=== PATIENT | female | born 1975 ===

== ENCOUNTER 2019-06-22 08:19 | Day surgery (SDC) | payer BC, SELFPAY ==
[2019-06-21 13:02] VITALS: BMI 32.5
--- NOTE | 2019-06-22 08:42 | PM.HPUD ---
H&P update H&P Update: DATE OF SURGERY/PROCEDURE: 06/22/19 DATE H&P PERFORMED: 06/22/19 PLANNED PROCEDURE: Operation Date: 06/22/19 10:05 Proposed Procedures p Laparoscopic Cholecystectomy poss open(Not Applicable) - Lawrence Foote MD Full H&P Perinent History: Family History: Family History (Updated 06/21/19 @ 09:13 by Monica Garcia RN) Other Diabetes Heart disease Hypertension
[2019-06-22] MEDS: sodium chloride 0.9% 1,000 ML 30 ML IV (09:11)
--- NOTE | 2019-06-22 09:24 | P.PN_ITS ---
Pre-Anesthetic Assessment Pre-Anesthetic Assessment: Height/Weight: Height 1.57 m Weight 80.739 kg Proposed Procedure: Operation Date: 06/22/19 10:05 Proposed Procedures p Laparoscopic Cholecystectomy poss open(Not Applicable) - Lawrence Foote MD Last intake: Intake Last Liquid Date 06/21/19 Last Liquid Time 20:00 Last Solid Date 06/21/19 Last Solid Time 18:00 Exam: Pre-Anes Outpt Exam: alert, oriented x 3, clear to auscultation bilaterally and regular rate & rhythm Airway: Submandibular: WNL Cervical ROM: WNL MP: 2 Dentition: Full History/ROS: No significant history except as noted and No significant c omplaints Pulmonary: Pulmonary: None reported CV/HEM: CV/HEM: Anemia and HTN : : None reported Hepatic: Hepatic: None reported GI: GI: None reported Metabolic: Metabolic: None reported Musc/skel: Musc/skel: None reported Neuropsych: Neuropsych: None reported Anesthetic Plan: ASA status: II Anesthesia: General Risk of > 500 ml blood loss (7ml/kg in children): No Meds/Allergies Current Medications: Current Medications Generic Name Dose Route Start Last Admin Trade Name Freq PRN Reason Stop Dose Admin Sodium Chloride 1,000 mls @ 30 ml s/hr 06/22/19 06:15 06/22/19 09:11 Sodium Chloride 0.9% IV 06/23/19 06:14 30 mls/hr .Q24H MICHAEL Administration PFSH Anesthesia PFSH: Family History (Updated 06/21/19 @ 09:13 by Monica Garcia RN) Other Diabetes Heart disease Hypertension Data Anesthesia Cardiac Studies: No Data to Display
[2019-06-22 10:21] LABS: Alanine Aminotransferase 15 U/L (0-33); Albumin Level 4.7 g/dL (3.5-5.2); Alkaline Phosphatase 61 IU/L (35-105); Aspartate Amino Transferase 14 U/L (0-32); Globulin 2.6 g/dL (1.3-4.6); Total Bilirubin 0.6 mg/dL (0.15-1.2); Total Protein 7.3 g/dL (6.6-8.7)
--- NOTE | 2019-06-22 10:30 | P.OP_ITS ---
Operative Report Post-Operative Note: Date of procedure: 06/22/19 Preop Diagnosis: Symptomatic cholelithiasis. Post-op diagnosis: same Procedure Done: Laparoscopic cholecystectomy. Specimens removed/disposition: Gallbladder. Surgeon: Lawrence Foote Anesthesia: general Estimated blood loss (mL): 10 Complications: None. Condition: stable Disposition: PACU Operative Report: Procedure: The patient was brought to the Operating Room and was placed in a supine position on the Operating Room table. General endotr acheal anesthesia was induced. The abdomen was prepped and draped in a sterile fashion. A small vertical incision was carried out in the inferior aspect of the umbilicus. Blunt dissection was carried out down to the fascia, which was grasped with a Jennifer clamp. A stay suture of 0 Vicryl was placed on either side of the midline and the midline fascia was incised. The underlying peritoneum was opened bluntly and the Nilsa port was placed directly into the peritoneal cavity and was held in place with the inflatable balloon. The peritoneal cavity was insufflated with carbon dioxide. The laparoscope was used to inspect the abdominal cavity. No gross abnormalities were initially noted. A 5 millimeter port was placed in the epigastrium under direct vision. Two 5-millimeter ports were placed on the right side of the abdomen under direct vision. The gallbladder was grasped and was elevated. The patient was found to have adhesions all the way along the fundus of the gallbladder, extending down to the infundibulum. These were all taken down using blunt dissection with some cautery to maintain hemostasis. Blunt dissection and hydrodissection were carried out in the infundibular region of the gallbladder and the cystic duct and cystic artery were identified. The gallbladder was partially removed from the liver bed using cautery and the spatula to confirm the anatomy before the structures were clipped and divided. The gallbladder was then removed from the liver bed using cautery and the spatula. After the gallbladder had been removed from the liver bed, the laparoscope was moved to the epigastric port and the gallbladder was removed from the peritoneal cavity through the umbilical port site. The stay sutures of Vicryl were tied to each other at the umbilicus, closing the defect so that it was airtight. The perihepatic spaces were irrigated with saline and the liver bed was reinspected. No ongoing problems were seen. The remaining ports were removed from the abdominal wall and the pneumoperitoneum was evacuated. All skin incisions were closed using inverted interrupted sutures of 4-0 Vicryl. Benzoin and Steri-Strips were placed over the incisions and Band-Aids followed. The patient was taken to the Recovery Area in stable condition postoperatively. Coding Level of Care Code Acute French Polisher for Hector Berman
[2019-06-22 10:38] VITALS: BP 138/81; PULSE 85; RESP 20; TEMP 37; O2SAT 98
--- NOTE | 2019-06-22 10:40 | SUR.PHASEI ---
1038- RECEIVED PATIENT IN PACU FROM OR [facility]IA [facility]. RESP ARE EVEN AND NONLABORED. SIMPLE MASK APPLIED AT 6LPM, SAT 100%. SHE IS LETHARGIC. ACUTE ABDOMINAL SITES ARE DRY AND INTACT. NO S/S PAIN OR NAUSEA
[2019-06-22 10:43] VITALS: BP 126/66; PULSE 75; RESP 19; O2SAT 98
[2019-06-22 10:48] VITALS: PULSE 73; RESP 18; O2SAT 97
[2019-06-22 10:51] VITALS: BP 124/63; PULSE 72; RESP 14; TEMP 36.8; O2SAT 98
--- NOTE | 2019-06-22 10:59 | SUR.PHASEI ---
1053- TRANSFERRED PATIENT FROM PACU TO OPS [facility]IA [facility]. RESP ARE EVEN AND NONLABORED. SAT 98% WITH ROOM AIR. SHE IS AWAKE AND ALERT, DROWSY. ACUTE ABDOMINAL SITES ARE DRY WITH BANDAIDS INTACT. SHE DENIES PAIN OR NAUSEA. TRANSITION OF CARE TO [facility]OL[facility]
[2019-06-22 11:04] VITALS: BP 116/67; PULSE 69; RESP 18; TEMP 36.8; O2SAT 98
[2019-06-22 11:30] VITALS: BP 112/66; PULSE 70; RESP 18; O2SAT 98
--- NOTE | 2019-06-22 14:34 | P.PCN_ITS ---
PACU note Post-Anesthesia Exam: awake Disposition: discharged
--- NOTE | 2019-06-22 14:34 | PM.PACU ---
PACU note Post-Anesthesia Exam: awake Disposition: discharged
== END 2019-06-22 11:42 | disposition home or self-care (01) ==
PROVIDERS: Family Provider Family Medicine; Visit Provider Surgery
PROC: 0FT44ZZ Resection of Gallbladder, Percutaneous Endoscopic Approach (ICD-10-PCS; CPT 47562; principal; 2019-06-22 09:35)
DX: K80.10 Calculus of gallbladder with chronic cholecystitis without obstruction (principal); I10 Essential (primary) hypertension; Z82.49 Family history of ischemic heart disease and other diseases of the circulatory system; Z83.3 Family history of diabetes mellitus; E78.00 Pure hypercholesterolemia, unspecified
CPT/HCPCS: 47562; 36415; 80076; 88304; 99221; J0690; J1100; J1885; J2001; J2250; J2270; J2405; J2704; J2710; J3010; J3490; J7030

== ENCOUNTER → 2022-02-17 09:18 | Outpatient (BNVA) | payer OTHER, SELFPAY | PROVIDERS: Family Provider Family Medicine; PCP Family Medicine; Visit Provider Family Medicine | DX: N28.9 Disorder of kidney and ureter, unspecified (principal); E78.5 Hyperlipidemia, unspecified; E03.9 Hypothyroidism, unspecified; I10 Essential (primary) hypertension | CPT/HCPCS: 80053; 80061; 84443 ==

== ENCOUNTER → 2022-12-08 08:10 | Outpatient (BNVA) | payer OTHER, SELFPAY | PROVIDERS: Family Provider Family Medicine; PCP Family Medicine; Visit Provider Family Medicine | DX: E66.9 Obesity, unspecified (principal); E78.5 Hyperlipidemia, unspecified; I10 Essential (primary) hypertension | CPT/HCPCS: 80053; 80061; 84443 ==

== ENCOUNTER → 2024-12-26 11:27 | Outpatient (BNVA) | payer OTHER, SELFPAY | PROVIDERS: Family Provider Family Medicine; PCP Family Medicine; Visit Provider Family Medicine | DX: Z00.00 Encounter for general adult medical examination without abnormal findings (principal); I10 Essential (primary) hypertension; E78.5 Hyperlipidemia, unspecified | CPT/HCPCS: 80053; 80061; 84443; 85025 ==

== ENCOUNTER → 2025-01-09 09:16 | Outpatient (BNVA) | payer OTHER, SELFPAY | PROVIDERS: Family Provider Family Medicine; PCP Family Medicine; Visit Provider Family Medicine | DX: Z00.00 Encounter for general adult medical examination without abnormal findings (principal); I10 Essential (primary) hypertension; E78.5 Hyperlipidemia, unspecified | CPT/HCPCS: 80053; 80061; 84443; 85025 ==

== ENCOUNTER 2025-02-01 06:03 | Day surgery (SDC) | payer OTHER, SELFPAY ==
[2025-02-01 06:18] VITALS: BP 127/86; PULSE 81; RESP 18; TEMP 36.1; O2SAT 96; BMI 35.6
--- NOTE | 2025-02-01 06:48 | ANES.PREANE2 ---
Pre-Anesthetic Assessment Height/Weight: Height 1.57 m Weight 88.451 kg Temp Pulse Resp BP Pulse Ox O2 Del Method 97.0 F L 81 18 127/86 96 Room Air 02/01/25 06:18 02/01/25 06:18 02/01/25 06:18 02/01/25 06:18 02/01/25 06:18 02/01/25 06:18 Preop Diagnosis: scren Operation Date: 02/01/25 07:00 Proposed Procedures p Colonoscopy 99005 G0121, Z12.11(Not Applicable) - Cristian Lopez MD Familial anesthetic complications: none Was Beta Doreen taken within 24 hours: Yes Was Clonidine taken within 24 hours: N/A Last intake: Intake Last Liquid Date 01/31/25 Last Liquid Time 21:00 Last Solid Date 01/30/25 Last Solid Time 21:00 Social No alcohol and No tobacco Airway Submandibular: within normal limits Cervical ROM: within normal limits Mallampati: Class II Dentition: caps (front upper) History/ROS No significant history except as noted Pulmonary None reported CV/HEM Hypertension None reported Hepatic None reported GI None reported Metabolic Morbid Obesity [facility] None reported Neuropsych None reported Anesthetic Plan ASA status: 3 Anesthesia: MAC Risk of > 500 ml blood loss (7ml/kg in children): No Medications/Allergies Home Medications ?Medication ?Instructions ?Recorded ?Confirmed ?Last Taken ?Type B Complex 1 tab PO DAILY 01/30/25 01/30/25 01/30/25 History Vitamin D3 1 tab PO DAILY 01/30/25 01/30/25 01/30/25 History aspirin 81 mg tablet 81 mg PO DAILY 01/30/25 01/30/25 01/30/25 History atorvastatin 20 mg tablet 20 mg PO DAILY 01/30/25 01/30/25 01/29/25 History lisinopril 10 mg tablet 10 mg PO DAILY 01/30/25 01/30/25 01/30/25 History magnesium glycinate 1 tab PO DAILY 01/30/25 01/30/25 01/29/25 History metoprolol succinate 25 mg 25 mg PO DAILY 01/30/25 01/30/25 01/30/25 History tablet,extended release 24 hr Allergies Allergy/AdvReac Type Severity Reaction Status Date / Time No Known Allergies Allergy Unverified 01/30/25 09:16 Current Medications Generic Name Dose Route Start Last Admin Trade Name Freq PRN Reason Stop Dose Admin Sodium Chloride 1,000 mls @ 15 mls/hr 02/01/25 06:08 02/01/25 06:27 Sodium Chloride 0.9% IV 02/02/25 06:07 15 mls/hr .Q24H PRN Administration COLONOSCOPY FLUIDS PFSH Anesthesia Medical History Hyperlipidemia Hypertension Sponge kidney Family History Other Diabetes Heart disease Hypertension Social History Smoking and tobacco/nicotine status: never used tobacco/nicotine
--- NOTE | 2025-02-01 06:56 | P.HPUD_ITS ---
Surgery/Procedure H&P Update DATE OF PROCEDURE: February 01, 2025 DATE H&P PERFORMED: 01/03/25 H&P UPDATE INFORMATION: I have reviewed H&P completed within last 30 days, I have examined patient prior to procedure, No changes to prior documentation, H&P is in [facility] EMR on date indicated and Risks and benefits of the procedure reviewed PREOP DIAGNOSIS: scren PLANNED PROCEDURE: Operation Date: 02/01/25 07:00 Proposed Procedures p Colonoscopy 69537 G0121, Z12.11(Not Applicable) - Cristian Lopez MD
[2025-02-01 07:28] VITALS: BP 90/58; PULSE 69; RESP 16; TEMP 36.1; O2SAT 96
[2025-02-01 07:38] VITALS: BP 119/86; PULSE 74; RESP 16; O2SAT 95
--- NOTE | 2025-02-01 08:08 | SUR.OPER ---
cecum time [id number]
--- NOTE | 2025-02-01 15:29 | ANE.PACU2 ---
Inpatient post-anesthesia follow up: Airway intact: Yes Vital signs: Temperature 97.0 F Pulse Rate 74 Respiratory Rate 16 Blood Pressure 119/86 Pulse Oximetry 95 Oxygen Delivery Me thod Room Air Oxygen Flow Rate Fraction of Inspir ed Oxygen Hydration adequate: Yes Nausea and vomiting: No Pain level: 1 Mental status: Baseline
== END 2025-02-01 08:00 | disposition home or self-care (01) ==
PROVIDERS: PCP Family Medicine; Visit Provider Surgery
PROC: 0DJD8ZZ Inspection of Lower Intestinal Tract, Via Natural or Artificial Opening Endoscopic (ICD-10-PCS; CPT 45378; principal; 2025-02-01 07:00)
DX: Z12.11 Encounter for screening for malignant neoplasm of colon (principal); D12.3 Benign neoplasm of transverse colon; E78.5 Hyperlipidemia, unspecified; I10 Essential (primary) hypertension; E66.01 Morbid (severe) obesity due to excess calories; Z68.35 Body mass index [BMI] 35.0-35.9, adult; Z79.82 Long term (current) use of aspirin
CPT/HCPCS: 45378; 88305; J2704; J7030